=== PATIENT | male | born 1970 ===

== ENCOUNTER 2016-09-17 19:46 | Emergency (ER) | payer BC ==
[2016-09-17 20:00] VITALS: BP 143/80
[2016-09-17] MEDS ORDERED: Acetaminophen 325 MG Tab PO ONE (20:09)
[2016-09-17] MEDS ORDERED: Albuterol/Ipratropium 3.0-0.5 MG/3 ML Neb Soln NEB ONE (20:09)
--- NOTE | 2016-09-17 20:11 | EDM.PDOC ---
ED HISTORY OF PRESENT ILLNESS - General Chief Complaint: Respiratory Problem Stated Complaint: COUGHING,COLD,FEVER Time Seen by Provider: 09/17/16 20:09 Source of Information: Reports: Patient History Limitations: Reports: No limitations - History of Present Illness INITIAL COMMENTS - FREE TEXT/NARRATIVE: Sx since yesterday and not getting better. - Related Data Allergies/ADRs: Allergies Allergy/AdvReac Type Severity Reaction Status Date / Time No Known Allergies Allergy Verified 09/17/16 19:56 Home Meds: Home Meds . [No Known Home Meds] 09/17/16 [History] Past Medical History - Past Health History Medical/Surgical History: Denies Medical/Surgical History - Infectious Disease History Infectious Disease History: Reports: Chicken pox Social & Family History - Tobacco Use Smoking Status *Q: Never Smoker - Recreational Drug Use Recreational Drug Use: No ED ROS GENERAL - Review of Systems Review Of Systems: ROS reveals no pertinent complaints other than HPI. ED EXAM, GENERAL - Physical Exam Exam: See Below Exam Limited By: No limitations General Appearance: alert, WD/WN, mild distress, other (episodic cough spasms) Ears: normal external exam, normal canal, hearing grossly normal Ear Exam: bilateral ear: TM dull Nose: normal inspection Throat/Mouth: Normal voice, No airway compromise Head: atraumatic Neck: non-tender, full range of motion Respiratory/Chest: no respiratory distress, no accessory muscle use, rhonchi, wheezing. No: decreased breath sounds, accessory muscle use, retractions, splinting Cardiovascular: regular rate, rhythm GI/Abdominal: soft, non tender Neurological: alert, oriented, normal cognition, normal gait, no motor/sensory deficits Psychiatric: flat affect Skin Exam: Warm, Dry Lymphatic: no adenopathy Course - Vital Signs Last Recorded V/S: Last Vital Signs Temp 38.7 C H 09/17/16 19:56 Pulse 123 H 09/17/16 19:56 Resp 18 09/17/16 19:56 BP 143/80 H 09/17/16 19:56 Pulse Ox 100 09/17/16 19:56 - Orders/Labs/Meds Orders: Active Orders 24 hr Category Date Time Status RT Aerosol Therapy [RC] ASDIRECTED Care 09/17/16 20:09 Active Meds: Medications Discontinued Medications Generic Name Dose Route Start Last Admin Trade Name Freq PRN Reason Stop Dose Admin Acetaminophen 325 mg 09/17/16 20:09 09/17/16 20:13 Tylenol PO 09/17/16 20:10 325 mg NOW ONE Administration Albuterol/Ipratropium 3 ml 09/17/16 20:09 09/17/16 20:14 Duoneb 3.0-0.5 Mg/3 Ml NEB 09/17/16 20:10 3 ml ONETIME ONE Administration Oseltamivir Phosphate 75 mg 09/17/16 20:27 09/17/16 20:33 Tamiflu PO 09/17/16 20:28 75 mg ONETIME ONE Administration Penicillin G Procaine/Benzathine 1.2 millunits 09/17/16 20:27 09/17/16 20:33 Bicillin C-R 600/600 IM 09/17/16 20:28 1.2 millunits ONETIME ONE Administration Promethazine HCl/Codeine Confirm 09/17/16 20:36 Phenergan With Codeine Administered 09/17/16 20:37 Dose 5 ml .ROUTE [facility] ONE - Re-Assessments/Exams Free Text/Narrative Re-Assessment/Exam: 09/17/16 20:32 results discussed with Pt. Departure - Departure Time of Disposition: 20:40 Disposition: Home, Self-Care 01 Condition: good Clinical Impression: Bronchospasm with bronchitis, acute, Strep pharyngitis, Influenza Instructions: Influenza, Adult, [id number] Forms: ED Department Discharge Additional Instructions: 1) sleep as much as possible 2) drink lots of liquids 3) take motrin for body aches and fever 4) don't sleep flat at night 5) follow up at clinic or recheck as needed rx given: tamiflu 75mg bid x 10 albuterol inhaler tid prn phenergan codeine syrup qid prn - My Orders Last 24 Hours: My Active Orders 09/17/16 20:09 RT Aerosol Therapy [RC] ASDIRECTED - Assessment/Plan Last 24 Hours: My Active Orders 09/17/16 20:09 RT Aerosol Therapy [RC] ASDIRECTED
[2016-09-17] MEDS ORDERED: Oseltamivir 75 MG Cap PO ONE (20:27)
[2016-09-17] MEDS ORDERED: Penicillin G Benzathine/Procaine 600-600 1.2 Millunits/2 ML Syringe IM ONE (20:27)
[2016-09-17] MEDS ORDERED: Codeine/Promethazine 10-6.25 MG/5 ML Syrup 5 ML UD Cup ONE (20:36)
[2016-09-17] MEDS ORDERED: Codeine/Promethazine 10-6.25 MG/5 ML Syrup 5 ML UD Cup PO ONE (20:36)
== END 2016-09-17 20:40 | disposition home or self-care (01) ==
LOC: DL.ED 19:46
DX: J20.9 Acute bronchitis, unspecified (principal); J11.1 Influenza due to unidentified influenza virus with other respiratory manifestations
CPT/HCPCS: 87430; 87804; 96372; 99283; A9270; J0558

== ENCOUNTER 2016-09-27 16:37 | Emergency (ER) | payer BC ==
[2016-09-27 19:04] VITALS: BP 123/78
--- NOTE | 2016-09-27 19:06 | EDM.PDOC ---
ED HISTORY OF PRESENT ILLNESS - General Chief Complaint: Respiratory Problem Stated Complaint: COUGH [phone] Time Seen by Provider: 09/27/16 19:04 Source of Information: Reports: Patient History Limitations: Reports: No limitations - History of Present Illness INITIAL COMMENTS - FREE TEXT/NARRATIVE: 46 yo white male c/o cough X 1 week w/ occasional chill and scant sputum. Pt. states he was seen here last Monday - Related Data Allergies/ADRs: Allergies Allergy/AdvReac Type Severity Reaction Status Date / Time No Known Allergies Allergy Verified 09/27/16 17:06 Home Meds: Home Meds . [No Known Home Meds] 09/17/16 [History] Past Medical History - Past Health History Medical/Surgical History: Denies Medical/Surgical History - Infectious Disease History Infectious Disease History: Reports: Chicken pox Social & Family History - Family History Family Medical History: Noncontributory - Tobacco Use Smoking Status *Q: Never Smoker Second Hand Smoke Exposure: No - Caffeine Use Caffeine Use: Reports: Soda - Recreational Drug Use Recreational Drug Use: No ED ROS GENERAL - Review of Systems Review Of Systems: See Below Constitutional: Reports: no symptoms HEENT: Reports: No symptoms Respiratory: Reports: Cough, Sputum Cardiovascular: Reports: No symptoms Endocrine: Reports: no symptoms GI/Abdominal: Reports: No symptoms : Reports: no symptoms Musculoskeletal: Reports: no symptoms Skin: Reports: no symptoms Neurological: Reports: No Symptoms Psychiatric: Reports: No symptoms Hematologic/Lymphatic: Reports: no symptoms Immunologic: Reports: no symptoms ED EXAM, GENERAL - Physical Exam Exam: See Below Exam Limited By: No limitations General Appearance: alert, WD/WN, no apparent distress Eye Exam: bilateral eye: PERRL Ears: normal external exam Nose: normal inspection Throat/Mouth: Normal inspection Head: atraumatic Neck: normal inspection Respiratory/Chest: no respiratory distress, lungs clear, normal breath sounds Cardiovascular: normal peripheral pulses, regular rate, rhythm GI/Abdominal: normal bowel sounds Back Exam: normal inspection Neurological: alert, oriented Psychiatric: normal affect Course - Vital Signs Last Recorded V/S: Last Vital Signs Temp 36.8 C 09/27/16 17:01 Pulse 86 09/27/16 19:03 Resp 18 09/27/16 19:03 BP 123/78 09/27/16 19:03 Pulse Ox 98 09/27/16 19:03 - Orders/Labs/Meds Orders: Active Orders 24 hr Category Date Time Status Chest 2V [CR] Urgent Exams 09/27/16 19:01 Taken Departure - Departure Time of Disposition: 19:34 Disposition: Home, Self-Care 01 Condition: good Clinical Impression: Bronchitis, Bronchospasm with bronchitis, acute Forms: ED Department Discharge Additional Instructions: Rest and increase fluids (Juice/Water) Take Medication as prescribed only # 1Pack Z-Mikey Tessalon Perles 100mg TID # 30 F/U w/ PCP - My Orders Last 24 Hours: My Active Orders 09/27/16 19:01 Chest 2V [CR] Urgent - Assessment/Plan Last 24 Hours: My Active Orders 09/27/16 19:01 Chest 2V [CR] Urgent
== END 2016-09-27 19:55 | disposition home or self-care (01) ==
LOC: DL.ED 16:37
DX: J20.9 Acute bronchitis, unspecified (principal)
CPT/HCPCS: 71020; 99283

== ENCOUNTER 2017-09-25 01:04 | Emergency (ER) | payer BC ==
[2017-09-25] MEDS ORDERED: Codeine/Promethazine 10-6.25 MG/5 ML Syrup 5 ML UD Cup PO ONE (01:05)
[2017-09-25] MEDS ORDERED: methylPREDNISolone Sodium Succinate 125 MG/2 ML SDV IM ONE (01:11)
[2017-09-25] MEDS ORDERED: Albuterol/Ipratropium 3.0-0.5 MG/3 ML Neb Soln NEB ONE ×2 (01:11→02:06)
--- NOTE | 2017-09-25 01:14 | EDM.PDOC ---
ED HPI GENERAL MEDICAL PROBLEM - General Chief Complaint: Respiratory Problem Stated Complaint: BAD COUGH [phone] Time Seen by Provider: 09/25/17 01:12 Source of Information: Reports: Patient History Limitations: Reports: No Limitations - History of Present Illness INITIAL COMMENTS - FREE TEXT/NARRATIVE: few days h/o cough wheeze some SOB, denies F/C but been sweaty on off. - Related Data Allergies Allergy/AdvReac Type Severity Reaction Status Date / Time No Known Allergies Allergy Verified 09/25/17 01:21 Home Meds: Home Meds . [No Known Home Meds] 09/17/16 [History] Past Medical History - Past Health History Medical/Surgical History: Denies Medical/Surgical History - Infectious Disease History Infectious Disease History: Reports: Chicken Pox Social & Family History - Family History Family Medical History: Noncontributory - Tobacco Use Smoking Status *Q: Never Smoker Second Hand Smoke Exposure: No - Caffeine Use Caffeine Use: Reports: Soda - Recreational Drug Use Recreational Drug Use: No ED ROS GENERAL - Review of Systems Review Of Systems: ROS reveals no pertinent complaints other than HPI. ED EXAM, GENERAL - Physical Exam Exam: See Below Exam Limited By: No Limitations General Appearance: Alert, WD/WN, Mild Distress, Other (cough spasms) Ears: Hearing Grossly Normal Throat/Mouth: Normal Voice, No Airway Compromise Head: Atraumatic Neck: Non-Tender, Full Range of Motion Respiratory/Chest: No Accessory Muscle Use, Decreased Breath Sounds, Rhonchi, Wheezing. No: Retractions, Splinting Cardiovascular: Regular Rate, Rhythm GI/Abdominal: Soft, Non-Tender Neurological: Alert, Oriented, Normal Cognition, Normal Gait, No Motor/Sensory Deficits Psychiatric: Normal Affect, Normal Mood Skin Exam: Warm, Dry, Normal Color Lymphatic: No Adenopathy Course - Vital Signs Last Recorded V/S: Last Vital Signs Temp 36.4 C 09/25/17 01:10 Pulse 89 09/25/17 01:10 Resp 21 H 09/25/17 01:10 BP 157/86 H 09/25/17 01:10 Pulse Ox 97 09/25/17 01:10 - Orders/Labs/Meds Orders: Active Orders 24 hr Category Date Time Status RT Aerosol Therapy [RC] ASDIRECTED Care 09/25/17 01:12 Active RT Aerosol Therapy [RC] ASDIRECTED Care 09/25/17 02:06 Ordered Chest 2V [CR] Urgent Exams 09/25/17 01:12 Taken Meds: Medications Discontinued Medications Generic Name Dose Route Start Last Admin Trade Name Mallorie PRN Reason Stop Dose Admin Albuterol/Ipratropium 3 ml 09/25/17 01:11 09/25/17 01:16 Duoneb 3.0-0.5 Mg/3 Ml NEB 09/25/17 01:12 3 ml ONETIME ONE Administration Albuterol/Ipratropium 3 ml 09/25/17 02:06 09/25/17 02:10 Duoneb 3.0-0.5 Mg/3 Ml NEB 09/25/17 02:07 3 ml ONETIME ONE Administration Methylprednisolone Sodium Succinate 125 mg 09/25/17 01:11 09/25/17 01:19 Solu-Medrol IM 09/25/17 01:12 125 mg ONETIME ONE Administration - Re-Assessments/Exams Free Text/Narrative Re-Assessment/Exam: 09/25/17 02:24 results discussed with pt who is much better s/p IM solumed+duo Departure - Departure Time of Disposition: 02:24 Disposition: Home, Self-Care 01 Condition: Good Clinical Impression: Bronchospasm with bronchitis, acute - Discharge Information Instructions: Acute Bronchitis, Adult, [id number] Forms: ED Department Discharge Additional Instructions: 1) rest as much as possible 2) don't sleep flat at night 3) use neb 3 times daily for cough and wheeze 4) recheck as needed rx given; medrol dospak albuterol 2.5mg tid prn phenergan codeine syrup qid prn x 4oz - My Orders Last 24 Hours: My Active Orders 09/25/17 01:12 RT Aerosol Therapy [RC] ASDIRECTED Chest 2V [CR] Urgent 09/25/17 02:06 RT Aerosol Therapy [RC] ASDIRECTED - Assessment/Plan Last 24 Hours: My Active Orders 09/25/17 01:12 RT Aerosol Therapy [RC] ASDIRECTED Chest 2V [CR] Urgent 09/25/17 02:06 RT Aerosol Therapy [RC] ASDIRECTED
[2017-09-25 01:18] VITALS: BP 157/86
[2017-09-25] MEDS ORDERED: Codeine/Promethazine 10-6.25 MG/5 ML Syrup 5 ML UD Cup ONE (02:23)
== END 2017-09-25 02:31 | disposition home or self-care (01) ==
LOC: DL.ED 01:04
DX: J20.9 Acute bronchitis, unspecified (principal)
CPT/HCPCS: 71046; 96372; 99283; A9270-GY; J2930

== ENCOUNTER 2019-12-29 14:28 | Emergency (ER) | payer BC ==
[2019-12-29 14:43] VITALS: BP 149/94; PULSE 99
--- NOTE | 2019-12-29 14:52 | EDM.PDOC ---
ED HPI GENERAL MEDICAL PROBLEM - General Chief Complaint: Upper Extremity Injury/Pain Stated Complaint: left shoulder pain Time Seen by Provider: 12/29/19 14:45 Source of Information: Reports: Patient, RN Notes Reviewed History Limitations: Reports: No Limitations - History of Present Illness INITIAL COMMENTS - FREE TEXT/NARRATIVE: C/o left shoulder pain, denies known injury. Started last lissette. Has not taken anything for pain. Reports some burning at top of shoulder and occasional tingling forearm and finger. Pain positional, worse sitting better when standing and arm hanging. 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 Unable to sleep much due to pain. Left Shoulder Pain Score (Numeric/FACES): 9 - Related Data Allergies Allergy/AdvReac Type Severity Reaction Status Date / Time No Known Allergies Allergy Verified 12/29/19 14:40 Home Meds: Home Meds . [No Known Home Meds] 09/17/16 [History] Past Medical History - Past Health History Medical/Surgical History: Denies Medical/Surgical History - Infectious Disease History Infectious Disease History: Reports: Chicken Pox Social & Family History - Family History Family Medical History: Noncontributory - Tobacco Use Smoking Status *Q: Never Smoker - Caffeine Use Caffeine Use: Reports: Soda - Recreational Drug Use Recreational Drug Use: No Review of Systems - Review of Systems Review Of Systems: Comprehensive ROS is negative, except as noted in HPI. ED EXAM, GENERAL - Physical Exam Exam: See Below Exam Limited By: No Limitations General Appearance: Alert, No Apparent Distress, Anxious, Lethargic, Mild Distress Eye Exam: Bilateral Eye: EOMI Ears: Normal External Exam, Hearing Grossly Normal, Normal TMs Nose: Normal Inspection Throat/Mouth: Normal Inspection Head: Atraumatic, Normocephalic Neck: Normal Inspection Respiratory/Chest: No Respiratory Distress Cardiovascular: Normal Peripheral Pulses GI/Abdominal: Soft, Non-Tender Extremities: Normal Inspection, Normal Capillary Refill. No: Normal Range of Motion (slight limitation external rotation No deformity. ), Increased Warmth, Mottled, Pallor, Redness Neurological: Alert, Oriented Psychiatric: Normal Affect, Normal Mood Skin Exam: Warm, Dry, Intact, Normal Color Course - Vital Signs Last Recorded V/S: Last Vital Signs Temp 97.7 F 12/29/19 14:35 Pulse 99 12/29/19 14:35 Resp 18 12/29/19 14:35 BP 149/94 H 12/29/19 14:35 Pulse Ox 98 12/29/19 14:35 Departure - Departure Time of Disposition: 15:29 Disposition: Home, Self-Care 01 Condition: Good Clinical Impression: Muscle strain, shoulder region Qualifiers: Encounter type: initial encounter Laterality: left Qualified Code(s): S46.912A - Strain of unspecified muscle, fascia and tendon at shoulder and upper arm level, left arm, initial encounter - Discharge Information Instructions: Shoulder Pain, Wdyz-[id number] Forms: ED Department Discharge Additional Instructions: rest, gentle range of motio every 4 hours alternate tylenol 650mg and ibuprofen 600mg every 4 hours for inflammation/ discomfort ice to shoulder urgent follow up if chest pain, shortness of breath or fever clinic later this week if not improving with conservative measures Sepsis Event Note (ED) - Evaluation Sepsis Screening Result: No Definite Risk - Focused Exam Vital Signs: Vital Signs Temp Pulse Resp BP Pulse Ox 12/29/19 14:35 97.7 F 99 18 149/94 H 98
--- NOTE | 2019-12-29 15:15 | CR ---
PROCEDURE INFORMATION: Exam: XR Left Shoulder Exam date and time: 12/29/2019 3:01 PM Age: 49 years old Clinical indication: Other: Acute pain; Additional info: Pain and tingling, no known injury TECHNIQUE: Imaging protocol: XR Left shoulder. Views: 2 or more views. COMPARISON: No relevant prior studies available. FINDINGS: Bones/joints: There is no evidence of acute fracture. There is no evidence of joint malalignment or dislocation. Soft tissues: There are no soft tissue masses or fluid collections. IMPRESSION: 1. No evidence of acute fracture. 2. No evidence of acute dislocation.
== END 2019-12-29 15:47 | disposition home or self-care (01) ==
LOC: DL.ED 14:28
DX: S46.912A Strain of unspecified muscle, fascia and tendon at shoulder and upper arm level, left arm, initial encounter (principal); X58.XXXA Exposure to other specified factors, initial encounter
CPT/HCPCS: 73030-LT; 99283